=== PATIENT | male | born 1970 | race Hispanic/Latino ===

== ENCOUNTER 2021-03-04 10:50 | Outpatient (CLI) | payer OTHER | END 2021-03-04 10:51 | disposition home or self-care (01) | LOC: CSHRAD 10:50 | PROVIDERS: ATTEND Family Medicine | DX: U07.1 COVID-19 (principal) | CPT/HCPCS: 71046 ==

== ENCOUNTER 2021-09-02 15:27 | Outpatient (CLI) | payer OTHER | END 2021-09-02 15:28 | disposition home or self-care (01) | LOC: CSHRAD 15:27 | PROVIDERS: ATTEND Student in an Organized Health Care Education/Training Program | DX: M79.671 Pain in right foot (principal) ==

== ENCOUNTER 2022-06-01 20:07 | Emergency (ER) | payer OTHER ==
[2022-06-01 20:38] LABS: #Eosinphils 0.2 10x3/uL (0.0-0.5); #Monocytes 0.5 10x3/uL (0.0-1.1); #Neutrophils 6.7 10x3/uL (1.5-8.4); %Basophils 0.3 % (0.0-2.0); %Eosinophils 1.8 % (0.0-6.0); %Lymphocytes 28.6 % (18.0-47.0); %Monocytes 4.7 % (0.0-10.0); %Neutrophils 64.4 % (40.0-75.0); Hemoglobin 16.2 g/dL (13.5-17.5); Mean Corpuscular HGB CONC 33.5 g/dL (32.0-36.0); Mean Corpuscular Hemoglobin 28.7 pg (27.0-33.0); Mean Corpuscular Volume 85.8 fl (81.2-95.1); Mean Platelet Volume 10.4 fl (7.4-10.4); Platelet Count 321 10x3/uL (150-450); RBC Distribution Width 14.1 % (11.5-14.5); Red Blood Cell (RBC) Count 5.64 10x6/uL (4.32-5.72); White Blood Cell (WBC) Count 10.4 10x3/uL (3.5-10.5)
[2022-06-01 20:51] LABS: ALT (SGPT) 31 U/L (8-55); AST (SGOT) 31 U/L (5-34); Albumin 4.2 g/dL (3.5-5.0); Alkaline Phosphatase 109 U/L (40-110); Anion Gap 13 mmol/L (10-20); BUN (Urea Nitrogen) 14 mg/dL (8.9-20.6); Bilirubin, Total 0.4 mg/dL (0.2-1.2); Calc. Creatinine Clearance 0 mL/min (70-130); Calcium 8.5 mg/dL (7.8-10.44); Carbon Dioxide 23 mmol/L (22-29); Chloride 108 mmol/L (98-107); Estimated GFR 85; Globulin 3.7 g/dL (2.4-3.5); Glucose 108 mg/dL (70-105); Potassium 4.4 mmol/L (3.5-5.1); Protein, Total 7.9 g/dL (6.0-8.3); Sodium 140 mmol/L (136-145)
[2022-06-01] MEDS ORDERED: Nitroglycerin 0.4 MG TAB 1 EACH ONE (20:53)
[2022-06-01] MEDS ORDERED: Aspirin 325 MG TAB ONE (20:53)
[2022-06-01] MEDS ORDERED: Morphine 4 MG/ML VIAL ONE (21:34)
== END 2022-06-01 22:46 | disposition home or self-care (01) ==
LOC: CSHERS 20:07
DX: R07.89 Other chest pain (principal); E11.9 Type 2 diabetes mellitus without complications; I10 Essential (primary) hypertension; Z79.899 Other long term (current) drug therapy
CPT/HCPCS: 71045; 80053; 84484; 85025; 93005; 96374; J2270

== ENCOUNTER 2023-05-05 09:08 | Day surgery (SDC) | payer OTHER ==
[2023-05-04 11:54] VITALS: BMI 43.8
[2023-05-05] MEDS ORDERED: PROPOFOL 20 ML ONE (11:30)
[2023-05-05] MEDS ORDERED: Lidocaine 1% PF 5 ML VIAL ONE (11:30)
[2023-05-05] MEDS ORDERED: fentaNYL 50 mcg/mL 1 mL Vial ONE (11:31)
== END 2023-05-05 12:30 | disposition home or self-care (01) ==
LOC: CSHULT 09:08
PROVIDERS: ATTEND Internal Medicine Gastroenterology
PROC: 0DJ08ZZ Inspection of Upper Intestinal Tract, Via Natural or Artificial Opening Endoscopic (ICD-10-PCS; principal; 2023-05-05)
DX: K21.9 Gastro-esophageal reflux disease without esophagitis (principal); K22.70 Barrett's esophagus without dysplasia; K22.89 Other specified disease of esophagus; K44.9 Diaphragmatic hernia without obstruction or gangrene; I10 Essential (primary) hypertension; E10.9 Type 1 diabetes mellitus without complications; Z79.899 Other long term (current) drug therapy; Z98.890 Other specified postprocedural states
CPT/HCPCS: 76700; J2704; J3010

== ENCOUNTER 2023-08-09 00:30 | Emergency (ER) | payer OTHER, SELFPAY ==
[2023-08-09] MEDS ORDERED: Ondansetron PF 4 MG/2 ML Vial ONE (02:05)
[2023-08-09] MEDS ORDERED: Acetaminophen 500 MG TAB ONE (02:50)
[2023-08-09 02:55] LABS: Influenza A by NAA Not Detected (NotDetected); Influenza B by NAA Not Detected (NotDetected); SARS-CoV-2 NAA Rapid Test DETECTED (NotDetected)
== END 2023-08-09 03:30 | disposition home or self-care (01) ==
LOC: CSHERS 00:30
DX: U07.1 COVID-19 (principal); R11.10 Vomiting, unspecified; E11.9 Type 2 diabetes mellitus without complications; K21.9 Gastro-esophageal reflux disease without esophagitis; I10 Essential (primary) hypertension; E78.5 Hyperlipidemia, unspecified; Z79.899 Other long term (current) drug therapy; Z79.84 Long term (current) use of oral hypoglycemic drugs; Z79.82 Long term (current) use of aspirin
CPT/HCPCS: 36416; 71045; 96361; 96374; J2405

== ENCOUNTER 2024-02-18 13:29 | Emergency (ER) | payer OTHER ==
[2024-02-18] MEDS ORDERED: Ketorolac Tromethamine 30 MG (1 mL) VIAL ONE (14:07)
[2024-02-18] MEDS ORDERED: Morphine 4 MG/ML VIAL ONE (14:07)
[2024-02-18] MEDS ORDERED: oxyCODONE 5 MG TAB ONE (15:27)
[2024-02-18] MEDS ORDERED: Acetaminophen 500 MG TAB ONE (15:27)
== END 2024-02-18 16:29 | disposition home or self-care (01) ==
LOC: CSHERS 13:29
DX: S22.32XA Fracture of one rib, left side, initial encounter for closed fracture (principal); X50.1XXA Overexertion from prolonged static or awkward postures, initial encounter
CPT/HCPCS: 93005; 96372; J1885; J2270